=== PATIENT | male | born 1940 | race Caucasian/White ===

== ENCOUNTER → 2016-11-17 | Outpatient (CLI) | payer OTHER, MEDICARE ==
[2016-11-17 16:42] LABS: BASOPHILS # (AUTO) 0.01 10*3/UL; BASOPHILS % (AUTO) 0.2 % (0-1); EOSINOPHILS % (AUTO) 1.2 % (0-8); HEMATOCRIT 44.3 % (42.0-52.0); HEMOGLOBIN 14.8 g/dL (14.0-18.0); IMM GRAN % (AUTO) 0.2 % (0-5); IMM GRAN# (AUTO) 0.01 10*3/UL; LYMPHOCYTES # (AUTO) 1.78 10*3/uL; LYMPHOCYTES % (AUTO) 27.7 % (10-50); MEAN CORPUSCULAR HGB CONC 33.4 g/dL (33-37); MEAN PLATELET VOLUME 9.4 FL (7.4-12.2); MONOCYTES # (AUTO) 0.64 10*3/UL (0.3-0.8); NEUTROPHILS % (AUTO) 60.7 % (50-80); RDW COEFFICIENT OF VARIATION 13.9 % (11.5-14.5); RED BLOOD COUNT 4.93 10^6/uL (4.70-6.10); WHITE BLOOD COUNT 6.42 10^3/uL (4.8-10.8)
[2016-11-17 16:46] LABS: PLATELET MORPHOLOGY COMMENT NORMAL MORPHOLOGY (NORM)
[2016-11-17 17:17] LABS: BLOOD UREA NITROGEN 16 mg/dL (7-22); BUN/CREATININE RATIO 17.77 (6-20); CHLORIDE 105 meq/L (98-112); CREATININE 0.9 mg/dL (0.70-1.50); POTASSIUM 4.6 meq/L (3.8-5.2); SODIUM 140 meq/L (135-145)
[2016-11-17 17:18] LABS: ASPARTATE AMINO TRANSFERASE 34 IU/L (21-57); BILIRUBIN,TOTAL 0.8 mg/dL (0.3-1.2); CALCIUM 9.5 mg/dL (8.7-10.7); GLUCOSE 75 mg/dL (78-110)
[2016-11-17 17:19] LABS: HDL CHOLESTEROL 30 mg/dL (40-150); TOTAL PROTEIN 6.9 g/dL (6.1-8.0); TRIGLYCERIDES 171 mg/dL (44-200)
== END ==
LOC: MOB LAB 14:24
DX: E11.9 Type 2 diabetes mellitus without complications (principal); I10 Essential (primary) hypertension; E78.5 Hyperlipidemia, unspecified; E55.9 Vitamin D deficiency, unspecified; G47.30 Sleep apnea, unspecified; Z12.5 Encounter for screening for malignant neoplasm of prostate; F17.290 Nicotine dependence, other tobacco product, uncomplicated
CPT/HCPCS: 36415; 80053; 80061; 82306; 83036; 84443; 85025; G0103; 99213

== ENCOUNTER → 2017-02-16 | Outpatient (CLI) | payer OTHER, MEDICARE ==
[2017-02-16 11:14] LABS: BILIRUBIN,URINE NEGATIVE (NEG); COLOR,URINE YELLOW; GLUCOSE, URINE (UA) NEGATIVE (NEG); NITRATE,URINE NEGATIVE (NEG); OCCULT BLOOD,URINE NEGATIVE (NEG); PROTEIN,URINE NEGATIVE (NEG); UROBILINOGEN,URINE 0.2 mg/dL (0.2)
[2017-02-16 11:15] LABS: CLARITY,URINE CLEAR (CLEAR); RBC,URINE 0 /hpf; SQUAMOUS EPITHELIAL CELL,UR RARE; URINE SAMPLE TYPE CLEAN CATCH URINE; WBC,URINE 0-1
== END ==
LOC: MOB LAB 10:30
DX: E11.65 Type 2 diabetes mellitus with hyperglycemia (principal); I10 Essential (primary) hypertension; E78.5 Hyperlipidemia, unspecified; E66.3 Overweight; G47.30 Sleep apnea, unspecified; N40.0 Benign prostatic hyperplasia without lower urinary tract symptoms; Z86.010 Personal history of colon polyps
CPT/HCPCS: 81001; 99213; G0463

== ENCOUNTER → 2017-02-22 | Outpatient (CLI) | payer OTHER, MEDICARE | LOC: MMPC 11:11 | PROVIDERS: ATTEND Surgery | DX: Z12.11 Encounter for screening for malignant neoplasm of colon (principal) | CPT/HCPCS: 99202; G0463 ==

== ENCOUNTER 2017-03-07 08:07 | Day surgery (SDC) | payer OTHER, MEDICARE ==
[~2017-03-07 08:07] MED LIST: LIDOCAINE W/ SODIUM BICARB 0.5 ML SYR ONE; Lactated Ringers 1,000 ML PRIMARY IV ONE
[2017-03-07 08:40] VITALS: RESP 15
--- NOTE | 2017-03-07 09:40 | GEN.OPNOTE ---
Colonoscopy Procedure Note Surgery Date: 03/07/17 Preoperative Diagnosis: History of colon polyps Postoperative Diagnosis: Colon polyps one in the descending colon second in the sigmoid colon. Sigmoid diverticulosis Procedure: Colonoscopy with snare polypectomy Surgeon: Edwin Collado MD Anesthesia Provider: Harshal Astorga CRNA Anesthesia Type: MAC Indications: Patient has history of colon polyps Findings: Prep : Marginal Cecum : Scope was advanced all way to the cecum. Ileocecal valve clearly identified. He had a large amount of retained material in the cecum. Because of this, lesions could've been missed. Ascending : Ascending colon had no abnormal disease Transverse : Transverse colon free from disease Sigmoid : Descending colon had a pop polyp easily removed with snare polypectomy. Scope measure 100 cm but again this is definitely the descending colon. Patient has second polyp removed snare polypectomy in the cecum Rectum : Rectum free from disease Digital Rectal Exam : A lubricated flexible colonoscope was inserted and passed to the blind end of the cecum.
[2017-03-07 10:22] VITALS: TEMP 96.8
== END 2017-03-07 09:35 | disposition home or self-care (01) ==
LOC: SDSC 08:07
PROVIDERS: ATTEND Surgery
DX: Z12.11 Encounter for screening for malignant neoplasm of colon (principal); Z86.010 Personal history of colon polyps; K63.5 Polyp of colon; K57.30 Diverticulosis of large intestine without perforation or abscess without bleeding
CPT/HCPCS: 45385; J2704; J7120

== ENCOUNTER → 2017-03-15 | Outpatient (CLI) | payer OTHER, MEDICARE | LOC: MMPC 11:11 | PROVIDERS: ATTEND Surgery | DX: K63.5 Polyp of colon (principal) ==